=== PATIENT | female | born 1960 | race African-American/Black ===

== ENCOUNTER 2020-06-18 21:52 | Emergency (ER) | payer OTHER ==
[~2020-06-18] VITALS: Ht 160 cm; Wt 97.1 kg
[~2020-06-18 21:52] MED LIST: CHOLESTEROL MED; ESTROGEN-METHY1 EAC3; HYDROCHLOROTHIA25 M1 PO; TRUVADA1 EAC1 PO
[2020-06-18] MEDS ORDERED: AMARYL2 M1 PO (22:03)
[2020-06-18] MEDS ORDERED: NORVASC 2.5 MG2.5 M1 PO (22:03)
[2020-06-18] MEDS ORDERED: TOPROL XL50 MG PO (22:03)
[2020-06-18] MEDS ORDERED: SKELAXIN 800 M800 M1 PO (22:03)
[2020-06-18] MEDS ORDERED: DERMACINRX5000 UNI1 PO (22:04)
[2020-06-18] MEDS ORDERED: ULTRAM50 MG PO (22:04)
[2020-06-18] MEDS ORDERED: CRESTOR10 MG PO (22:04)
[2020-06-18] MEDS ORDERED: FISH OIL 1,0001 EAC9 PO (22:05)
[2020-06-18] MEDS ORDERED: TRULICITY0.75 MG/0. SUBQ (22:05)
[2020-06-18] MEDS ORDERED: COZAAR 25 MG TA25 M1 PO (22:05)
[2020-06-18] MEDS ORDERED: FARXIGA10 MG PO (22:05)
[2020-06-18] MEDS ORDERED: NAPROSYN500 M1 PO (22:57)
[2020-06-18 23:08] VITALS: BP 129/75
== END 2020-06-18 23:09 | disposition home or self-care (01) ==
LOC: ER 21:52
DX: S92.352A Displaced fracture of fifth metatarsal bone, left foot, initial encounter for closed fracture (principal); I10 Essential (primary) hypertension; E11.9 Type 2 diabetes mellitus without complications; Z90.711 Acquired absence of uterus with remaining cervical stump; Z90.89 Acquired absence of other organs; Z79.899 Other long term (current) drug therapy; Z88.6 Allergy status to analgesic agent; X50.1XXA Overexertion from prolonged static or awkward postures, initial encounter; Y93.89 Activity, other specified; Y92.89 Other specified places as the place of occurrence of the external cause; Y99.8 Other external cause status